=== PATIENT | female | born 1980 | race Two or more races ===

== ENCOUNTER 2018-11-04 12:11 | Emergency (ER) | payer OTHER ==
[~2018-11-04] VITALS: Ht 162.6 cm; Wt 72.6 kg
[2018-11-04 13:35] LABS: Urine Bacteria FEW /hpf (None Seen); Urine Blood 3+ /uL (Negative); Urine Mucus MANY (None Seen); Urine Specific Gravity 1.033 (1.001-1.035); Urine WBC 118 /hpf (0 - 5)
[2018-11-04 13:38] LABS: Urine Pregnacy Test Negative (Negative)
[2018-11-04 13:42] LABS: Amphetamine Screen, Urine POSITIVE (NEGATIVE); Barbiturate Scree,Urine NEGATIVE (NEGATIVE); Benzodiazephine Screen, Urine NEGATIVE (NEGATIVE); Cannabinoid Screen, Urine POSITIVE (NEGATIVE); Cocaine Screen, Urine NEGATIVE (NEGATIVE); Opiate Scree,Urine NEGATIVE (NEGATIVE); Phencyclidine Screen, Urine NEGATIVE (NEGATIVE)
[2018-11-04 14:34] LABS: Basophils # (auto) 0 uL; Basophils % (auto) 0.6 % (0.0-2.0); Eosinophils # (auto) 0.1 uL; Hematocrit 39.3 % (36.0-46.0); Hemoglobin 13.1 g/dL (12.2-16.2); Lymphocytes # (auto) 1.5 uL; Lymphocytes % (auto) 21.7 % (10.0-50.0); Mean Corpuscular Hemoglobin 29.8 pg (28.0-32.0); Mean Corpuscular Hgb Conc. 33.3 g/dL (32.0-36.0); Mean Corpuscular Volume 89.4 fL (80.0-100.0); Monocytes # (auto) 0.6 uL; Monocytes % (auto) 8.5 % (0.0-12.0); Neutrophils # (auto) 4.8 uL; Neutrophils % (auto) 67.2 % (37.0-80.0); Nucleated Red Blood Cells % 0.1 %; Platelet Count (auto) 240 10^3/uL (140-450); Red Cell Distribution Width 14.1 % (11.8-14.3); White Blood Cell 7.1 10^3/uL (4.4-10.8)
[2018-11-04 14:51] LABS: Albumin 3.9 g/dL (3.4-5.0); Calcium 8.6 mg/dL (8.5-10.1); Potassium 4.3 mmol/L (3.5-5.1)
[2018-11-04 14:54] LABS: BUN/Creatinine Ratio 15.2
[2018-11-04 14:57] LABS: Bilirubin, Total 0.5 mg/dL (0.2-1.0); Total Protein 7.3 g/dL (6.4-8.2)
[2018-11-04 15:02] LABS: Salicylate < 1.7 mg/dL (2.8-20.0)
[2018-11-04 15:03] LABS: Acetaminophen < 2.0 ug/mL (10-30)
[2018-11-04] MEDS ORDERED: OLANZapine 5 MG TAB PO PRN (18:00)
[2018-11-04] MEDS ORDERED: OLANZapine 5 MG TAB PO ONE (18:00)
[2018-11-05 06:35] VITALS: BP 112/76
== END 2018-11-05 06:55 | disposition home or self-care (01) ==
LOC: ER 12:11 → EDBD 12:11 → ER 11-05 06:55
DX: R45.851 Suicidal ideations (principal); N39.0 Urinary tract infection, site not specified; F15.10 Other stimulant abuse, uncomplicated; F12.10 Cannabis abuse, uncomplicated; F41.9 Anxiety disorder, unspecified; F32.9 Major depressive disorder, single episode, unspecified; F20.9 Schizophrenia, unspecified; F17.210 Nicotine dependence, cigarettes, uncomplicated
CPT/HCPCS: 36415; 80053; 80307; 80320; 80329; 81001; 81025; 85025

== ENCOUNTER 2019-02-11 20:58 | Emergency (ER) | payer OTHER ==
[~2019-02-11] VITALS: Ht 167.6 cm; Wt 54.4 kg
[2019-02-11 21:56] LABS: Basophils # (auto) 0 uL; Basophils % (auto) 0.4 % (0.0-2.0); Eosinophils # (auto) 0 uL; Hematocrit 37.9 % (36.0-46.0); Lymphocytes # (auto) 0.9 uL; Lymphocytes % (auto) 9.2 % (10.0-50.0); Mean Corpuscular Hemoglobin 30.9 pg (28.0-32.0); Mean Corpuscular Hgb Conc. 34.3 g/dL (32.0-36.0); Monocytes # (auto) 0.6 uL; Monocytes % (auto) 6.6 % (0.0-12.0); Neutrophils % (auto) 83.8 % (37.0-80.0); Platelet Count (auto) 227 10^3/uL (140-450); Red Blood Cells 4.21 10^6/uL (4.0-5.20); Red Cell Distribution Width 12.9 % (11.8-14.3); White Blood Cell 9.6 10^3/uL (4.4-10.8)
[2019-02-11 22:12] LABS: Albumin 4.1 g/dL (3.4-5.0); Calcium 8.6 mg/dL (8.5-10.1); Potassium 3.9 mmol/L (3.5-5.1)
[2019-02-11 22:14] LABS: Acetaminophen < 2.0 ug/mL (10-30); BUN/Creatinine Ratio 15.2; Salicylate 2.2 mg/dL (2.8-20.0)
[2019-02-11 22:22] LABS: INR 1.05 (0.9-1.15); Partial Thromboplastin Time 25.4 sec (23.64-32.05)
[2019-02-11 22:25] LABS: Bilirubin, Total 0.7 mg/dL (0.2-1.0); Total Protein 8.2 g/dL (6.4-8.2)
[2019-02-11] MEDS ORDERED: LORazepam 2MG/ML-1ML VIAL ONE (23:39)
[2019-02-12] MEDS: LORazepam 2MG/ML-1ML VIAL IV ONE ×2 (00:15→00:17)
[2019-02-12] MEDS ORDERED: HALOPERIDOL LACTATE 5 MG/ML INJ VIAL ONE (00:44)
[2019-02-12] MEDS ORDERED: diphenhdrAMINE HCL 50 MG/1 ML VL ONE (00:45)
[2019-02-12] MEDS ORDERED: diphenhdrAMINE HCL 50 MG/1 ML VL IV ONE (01:15)
[2019-02-12] MEDS ORDERED: HALOPERIDOL LACTATE 5 MG/ML INJ VIAL IM ONE (01:15)
[2019-02-12 05:54] LABS: Urine Bacteria FEW /hpf (None Seen); Urine Blood 2+ /uL (Negative); Urine Mucus FEW (None Seen); Urine Specific Gravity 1.034 (1.001-1.035); Urine WBC 1 /hpf (0 - 5)
[2019-02-12] MEDS ORDERED: SODIUM CHLORIDE 0.9% 1,000 ML IV ONE (06:15)
[2019-02-12 06:18] LABS: Amphetamine Screen, Urine POSITIVE (NEGATIVE); Barbiturate Scree,Urine NEGATIVE (NEGATIVE); Benzodiazephine Screen, Urine NEGATIVE (NEGATIVE); Cannabinoid Screen, Urine POSITIVE (NEGATIVE); Cocaine Screen, Urine NEGATIVE (NEGATIVE); Opiate Scree,Urine NEGATIVE (NEGATIVE); Phencyclidine Screen, Urine NEGATIVE (NEGATIVE)
[2019-02-12 09:45] VITALS: BP 99/72
== END 2019-02-12 12:05 | disposition home or self-care (01) ==
LOC: EDBD 20:58 → ER 21:03
DX: T18.5XXA Foreign body in anus and rectum, initial encounter (principal); X58.XXXA Exposure to other specified factors, initial encounter; Y93.89 Activity, other specified; Y92.89 Other specified places as the place of occurrence of the external cause; Y99.8 Other external cause status
CPT/HCPCS: 36415; 74018; 74176; 80053; 80307; 80329; 81001; 84702; 85025; 85610; 85730; 96372; 96374; 96375; 99284; J1200; J1630; J2060

== ENCOUNTER 2019-07-03 13:13 | Emergency (ER) | payer MEDICAID, OTHER ==
[~2019-07-03] VITALS: Ht 152.4 cm; Wt 65.8 kg
[2019-07-03 14:04] LABS: Urine Bacteria NONE SEEN /hpf (None Seen); Urine Blood Negative /uL (Negative); Urine Mucus FEW (None Seen); Urine Specific Gravity 1.026 (1.001-1.035); Urine WBC 1 /hpf (0 - 5)
[2019-07-03 14:05] LABS: Basophils # (auto) 0 10 ^3/uL (0-0.2); Basophils % (auto) 0.3 % (0.0-2.0); Eosinophils # (auto) 0.1 10 ^3/uL (0-0.8); Eosinophils % (auto) 0.7 % (0.0-7.0); Hematocrit 41.7 % (36.0-46.0); Hemoglobin 14.5 g/dL (12.2-16.2); Lymphocytes # (auto) 1.6 10 ^3/uL (0.4-5.4); Lymphocytes % (auto) 21.2 % (10.0-50.0); Mean Corpuscular Hemoglobin 31.4 pg (28.0-32.0); Mean Corpuscular Hgb Conc. 34.7 g/dL (32.0-36.0); Mean Corpuscular Volume 90.4 fL (80.0-100.0); Monocytes # (auto) 0.4 10 ^3/uL (0-1.3); Monocytes % (auto) 6.1 % (0.0-12.0); Neutrophils # (auto) 5.3 10 ^3/uL (1.6-8.6); Neutrophils % (auto) 71.7 % (37.0-80.0); Nucleated Red Blood Cells % 0.1 %; Platelet Count (auto) 255 10^3/uL (140-450); Red Blood Cells 4.61 10^6/uL (4.0-5.20); White Blood Cell 7.4 10^3/uL (4.4-10.8)
[2019-07-03] MEDS ORDERED: ONDANSETRON ODT 4 MG TAB PO ONE ×2 (14:15)
[2019-07-03 14:22] VITALS: BP 104/71
[2019-07-03 14:23] LABS: Albumin 4.1 g/dL (3.4-5.0); Calcium 9.2 mg/dL (8.5-10.1); Potassium 3.2 mmol/L (3.5-5.1)
[2019-07-03 14:26] LABS: BUN/Creatinine Ratio 10.7; Bilirubin, Total 0.5 mg/dL (0.2-1.0)
[2019-07-03] MEDS ORDERED: POTASSIUM CHL 20 Meq TABLET PO ONE (15:00)
== END 2019-07-03 14:55 | disposition home or self-care (01) ==
LOC: ER 13:15
DX: R11.2 Nausea with vomiting, unspecified (principal)
CPT/HCPCS: 36415; 80053; 81001; 85025; 99283; Q0162

== ENCOUNTER 2019-10-30 13:37 | Emergency (ER) | payer MEDICAID ==
[~2019-10-30] VITALS: Ht 152.4 cm; Wt 68.0 kg
[2019-10-30] MEDS ORDERED: SODIUM CHLORIDE 0.9% 1,000 ML IV ONE (14:07)
[2019-10-30] MEDS ORDERED: ONDANSETRON HCL 4 MG/2 ML VIAL IV ONE (14:15)
[2019-10-30] MEDS ORDERED: LORazepam 2MG/ML-1ML VIAL IV ONE ×2 (14:15→15:00)
[2019-10-30 14:38] LABS: Basophils # (auto) 0.1 10 ^3/uL (0-0.2); Basophils % (auto) 0.6 % (0.0-2.0); Eosinophils # (auto) 0.1 10 ^3/uL (0-0.8); Eosinophils % (auto) 0.9 % (0.0-7.0); Lymphocytes # (auto) 1.7 10 ^3/uL (0.4-5.4); Lymphocytes % (auto) 17.6 % (10.0-50.0); Mean Corpuscular Hemoglobin 30.3 pg (28.0-32.0); Mean Corpuscular Hgb Conc. 32.5 g/dL (32.0-36.0); Mean Corpuscular Volume 93.1 fL (80.0-100.0); Neutrophils # (auto) 6.7 10 ^3/uL (1.6-8.6); Neutrophils % (auto) 70.9 % (37.0-80.0); Platelet Count (auto) 282 10^3/uL (140-450); Red Blood Cells 4.62 10^6/uL (4.0-5.20); Red Cell Distribution Width 13.1 % (11.8-14.3); White Blood Cell 9.5 10^3/uL (4.4-10.8)
[2019-10-30] MEDS ORDERED: diphenhdrAMINE HCL 50 MG/1 ML VL ONE (14:45)
[2019-10-30] MEDS ORDERED: LORazepam 2MG/ML-1ML VIAL ONE (14:46)
[2019-10-30 14:58] LABS: Alanine Aminotransferase 36 U/L (13-56); Albumin 4.2 g/dL (3.4-5.0); Anion Gap 10 (5-15); BUN/Creatinine Ratio 11.6; Blood Urea Nitrogen 11 mg/dL (7-18); Calcium 8.8 mg/dL (8.5-10.1); Carbon Dioxide 20 mmol/L (21-32); Chloride 107 mmol/L (98-107); GFR African American 85 mL/min; GFR Non-African American 70 mL/min; Glucose 105 mg/dL (74-106); Magnesium 2.1 mg/dL (1.6-2.6); Potassium 3.8 mmol/L (3.5-5.1); Salicylate < 1.7 mg/dL (2.8-20.0); Sodium 137 mmol/L (136-145)
[2019-10-30 15:00] LABS: Acetaminophen < 2.0 ug/mL (10-30)
[2019-10-30] MEDS ORDERED: diphenhdrAMINE HCL 50 MG/1 ML VL IV ONE (15:00)
[2019-10-30 15:01] LABS: Alkaline Phosphatase 79 U/L (45-117); Aspartate Aminotransferase 34 U/L (15-37); Bilirubin, Total 0.8 mg/dL (0.2-1.0); Total Protein 8.2 g/dL (6.4-8.2)
[2019-10-31 20:32] VITALS: BP 112/62
== END 2019-10-31 19:35 | disposition home or self-care (01) ==
LOC: ER 13:37
DX: F31.9 Bipolar disorder, unspecified (principal); F20.9 Schizophrenia, unspecified; F41.9 Anxiety disorder, unspecified; R11.10 Vomiting, unspecified; F19.159 Other psychoactive substance abuse with psychoactive substance-induced psychotic disorder, unspecified
CPT/HCPCS: 36415; 80053; 80320; 80329; 83735; 85025; 96361; 96374; 96375; 99284; J1200; J2060; J2405; J7030